=== PATIENT | male | born 1965 | race Caucasian/White ===

== ENCOUNTER 2021-10-19 05:00 | Inpatient (IN) | payer MEDICAID ==
[~2021-10-19] VITALS: Ht 167.6 cm; Wt 81.6 kg
--- NOTE | 2021-10-19 05:08 | NUR ---
Dr. Charles at bedside for MSE.
--- NOTE | 2021-10-19 05:10 | NUR ---
Dr. Charles speaking with patient thru [employer] phone.
[2021-10-19] MEDS ORDERED: IV NORMAL SALINE 1000 ML BAG IV ONE (05:15)
[2021-10-19] MEDS ORDERED: LORAZEPAM 2 MG/1 ML VIAL IV ONE (05:15)
[2021-10-19] MEDS ORDERED: MECLIZINE HCL 25 MG TABLET PO ONE (05:15)
[2021-10-19] MEDS ORDERED: ONDANSETRON 4 MG/2 ML VIAL ONE (05:34)
[2021-10-19] MEDS ORDERED: MECLIZINE HCL 25 MG TABLET ONE (05:34)
[2021-10-19] MEDS ORDERED: LORAZEPAM 2 MG/1 ML VIAL ONE (05:35)
[2021-10-19] MEDS ORDERED: ONDANSETRON 4 MG/2 ML VIAL IV ONE (05:45)
[2021-10-19 06:03] LABS: HEMATOCRIT 43.2 % (36.7-47.1); MEAN CORPUSCULAR HEMOGLOBIN 30.3 uug (23.8-33.4); MEAN CORPUSCULAR VOLUME 88.2 fL (73.0-96.2); PLATELET COUNT (AUTO) 211 K/uL (152-348)
[2021-10-19 06:06] LABS: CREATININE 1.2 mg/dL (0.6-1.3); POTASSIUM 3.6 mmol/L (3.5-5.1)
--- NOTE | 2021-10-19 06:08 | NUR ---
Xray at bedside.
[2021-10-19 06:10] LABS: BILIRUBIN,DIRECT 0.1 mg/dL (0.0-0.2); BILIRUBIN,TOTAL 0.5 mg/dL (0.2-1.0); TOTAL PROTEIN, SERUM 7.7 g/dL (6.4-8.2)
--- NOTE | 2021-10-19 06:14 | NUR ---
Pt out of ER for CT.
[2021-10-19] MEDS ORDERED: SWABABLE VALVE TRANSFER SET EA MC ONE (06:20)
[2021-10-19] MEDS ORDERED: IOHEXOL 300MG/ML 100 ML INFUS..BTL ONE (06:20)
[2021-10-19] MEDS ORDERED: IV NORMAL SALINE 250 ML IV ONE (06:20)
--- NOTE | 2021-10-19 06:35 | NUR ---
Pt back to ER from CT.
[2021-10-19] MEDS ORDERED: AMOX1TAB16 PO (06:43)
[2021-10-19] MEDS ORDERED: CLON0.5T4 PO (06:43)
[2021-10-19] MEDS ORDERED: FAMO20TA8 PO (06:43)
[2021-10-19] MEDS ORDERED: MECL-159 PO ×2 (06:43→09:45)
[2021-10-19] MEDS ORDERED: [UNRECOGNIZED DRUG - CODE] PO (06:43)
--- NOTE | 2021-10-19 07:06 | NUR ---
Recieved pt in bed, denies dizziness at this time, no other acute distress noted.
[2021-10-19 09:30] VITALS: BP 104/66
[2021-10-19] MEDS ORDERED: METH4TAB16 PO (09:45)
[2021-10-19] MEDS ORDERED: AMOX-430 PO (09:45)
[2021-10-19] MEDS ORDERED: POTASSIUM CHLORIDE 20 MEQ in IV NS 1000 ML 1,000 ML IV PRN (10:00)
[2021-10-19] MEDS ORDERED: HYDROCODONE/APAP 5-325MG TABLET PO PRN (10:00)
[2021-10-19] MEDS ORDERED: ONDANSETRON 4 MG/2 ML VIAL IV PRN (10:00)
[2021-10-19] MEDS ORDERED: ACETAMINOPHEN 325 MG TABLET PO PRN (10:00)
--- NOTE | 2021-10-19 10:25 | NUR ---
Admitted to telemetry for persistent debilitating dizziness. Alert and oriented x4. Denies sob or pain. NSR on telemetry. Brought in 2 bottles of medications endorsed to pharmacy. Fall precautions observed. Routine admission done. Dr. Coronel is made aware.
--- NOTE | 2021-10-19 11:24 | NUR ---
picked up by [facility] for mri at [facility] in stable condition.
[2021-10-19 14:06] VITALS: BP 109/64
--- NOTE | 2021-10-19 14:06 | NUR ---
came back from mri via [facility]. no acute distress noted.
[2021-10-19] MEDS: MECLIZINE HCL 25 MG TABLET PO SCH ×2 (14:07→17:39)
[2021-10-19 16:34] VITALS: BP 100/75
[2021-10-19] MEDS ORDERED: ATOR20TA PO (18:46)
--- NOTE | 2021-10-19 19:45 | NUR ---
RECEIVED PATIENT AWAKE IN BED. A/O X4. REPORT RECEIVED FOR PATIENT TO BE DISCHARGED HOME VIA [facility]. VS WNL. PATIENT DENIES ANY PAIN OR DISCOMFORT. DENIES ANY DIZZINESS. ALL NEEDS ATTENDED, WILL CONTINUE TO MONITOR AND ASSES.
--- NOTE | 2021-10-19 20:25 | NUR ---
PATIENT GIVEN TAXI VOUCHER #[id number] AND TAKEN DOWN VIA W/C. PATIENT LEFT FLOOR IN STABLE CONDITION.
[2021-10-19] MEDS ORDERED: FAMOTIDINE 20 MG TABLET PO SCH (21:00)
[2021-10-19] MEDS ORDERED: CLONAZEPAM 0.5 MG TABLET PO SCH (21:00)
== END 2021-10-19 20:25 | disposition home or self-care (01) | DRG 111 ==
LOC: ER 05:05 → EDBD 05:05 → TELE3 08:51
PROVIDERS: ADMIT Internal Medicine; ATTEND Internal Medicine
DX: H83.09 Labyrinthitis, unspecified ear (principal); E66.9 Obesity, unspecified; R42 Dizziness and giddiness; F41.9 Anxiety disorder, unspecified; Z20.822 Contact with and (suspected) exposure to COVID-19; F43.9 Reaction to severe stress, unspecified; R90.89 Other abnormal findings on diagnostic imaging of central nervous system; Z68.29 Body mass index [BMI] 29.0-29.9, adult
CPT/HCPCS: 36415; 70030-TC; 70470; 70551; 71045; 84484; 85025; 85730; 93005; 93880; A4663; G0378; J2060; J2405; J3480; J7040; J8597; Q9967

== ENCOUNTER 2021-10-27 23:10 | Emergency (ER) | payer MEDICAID ==
[~2021-10-27] VITALS: Ht 172.7 cm; Wt 83.5 kg
[~2021-10-27 23:10] MED LIST: AMOX-430 PO; ATOR20TA PO; CLON0.5T4 PO; FAMO20TA8 PO; MECL-159 PO; METH4TAB16 PO; [UNRECOGNIZED DRUG - CODE] PO
--- NOTE | 2021-10-28 00:10 | NUR ---
PT HAS STRONGLY REFUSED LAB DRAW DESPITE EDUCATING PT OF PURPOSE, DR. FELIX AWARE.
[2021-10-28] MEDS ORDERED: MECL-159 PO (00:35)
--- NOTE | 2021-10-28 01:09 | NUR ---
Patient discharged to home in stable condition. Written and verbal after care instructions given. Patient verbalizes understanding of instructions. Stressed follow up or return to ER for worsening s/s. Steady gait, denies any CHANG/dizzyness. No SOB or labored breathing, afebrile.
[2021-10-28 01:11] VITALS: BP 115/70
== END 2021-10-28 01:11 | disposition home or self-care (01) ==
LOC: ER 23:15
DX: R42 Dizziness and giddiness (principal); Z76.0 Encounter for issue of repeat prescription
CPT/HCPCS: A4663

== ENCOUNTER 2021-11-09 13:10 | Emergency (ER) | payer MEDICAID ==
[~2021-11-09] VITALS: Ht 172.7 cm; Wt 83.5 kg
[2021-11-09] MEDS ORDERED: MECL-159 PO (13:35)
--- NOTE | 2021-11-09 13:42 | NUR ---
Patient discharged to home in stable condition. Written and verbal after care instructions given. Patient verbalizes understanding of instructions. Stressed follow up or return to ER for worsening s/s.
[2021-11-09 13:43] VITALS: BP 115/76
== END 2021-11-09 13:43 | disposition home or self-care (01) ==
LOC: ER 13:10
DX: R42 Dizziness and giddiness (principal); Z76.0 Encounter for issue of repeat prescription; K21.9 Gastro-esophageal reflux disease without esophagitis; Z79.899 Other long term (current) drug therapy
CPT/HCPCS: A4663